=== PATIENT | female | born 1965 | race Caucasian/White ===

== ENCOUNTER 2017-05-03 12:22 | Emergency (ER) | payer MEDICAID ==
[2017-05-03 16:39] VITALS: BP 142/67
== END 2017-05-03 16:39 | disposition home or self-care (01) ==
LOC: ED 12:22
DX: F41.9 Anxiety disorder, unspecified (principal); G44.209 Tension-type headache, unspecified, not intractable
CPT/HCPCS: J1885

== ENCOUNTER 2018-01-17 16:43 | Emergency (ER) | payer SELFPAY ==
[~2018-01-17] VITALS: Ht 160 cm; Wt 74.8 kg
[2018-01-17 17:03] VITALS: Ht 160 cm; Wt 74.8 kg
[2018-01-17 18:57] LABS: microscopic required? YES; urine erythrocyte 2+ (NEGATIVE)
[2018-01-17 19:16] LABS: CALCIUM 8.5 mg/dL (8.5-10.1); CARBON DIOXIDE 24.8 mmol/L (21-32); CHLORIDE SERUM 98 mmol/L (98-107); CREATININE SERUM 0.9 mg/dL (0.6-1.0); GFR1 > 60 mL/min; GLUCOSE SERUM 138 mg/dL (74-106); POTASSIUM SERUM 3.7 mmol/L (3.5-5.1); SODIUM SERUM 137 mmol/L (136-145)
[2018-01-17 19:21] LABS: ALKALINE PHOSPHATASE 229 U/L (46-116); ALT/SGPT 53 U/L (14-59); AST/SGOT 31 U/L (15-37); BILIRUBIN TOTAL 0.6 mg/dL (0.20-1.00); TOTAL PROTEIN, SERUM 7.7 g/dL (6.4-8.2)
[2018-01-17 20:19] VITALS: BP 109/60
== END 2018-01-17 20:19 | disposition home or self-care (01) ==
LOC: ED 16:43
PROVIDERS: Emergency Medicine
DX: N39.0 Urinary tract infection, site not specified (principal); B34.9 Viral infection, unspecified
CPT/HCPCS: 87804; J0696